=== PATIENT | female | born 1955 | race African-American/Black ===

== ENCOUNTER 2017-04-19 12:31 | Emergency (ER) | payer OTHER ==
[~2017-04-19] VITALS: Ht 154.9 cm; Wt 73.0 kg
--- NOTE | 2017-04-19 12:36 | Emergency Room Report ---
History of Present Illness General Chief Complaint: Chest Pain Source: Patient Present Illness HPI 62-year-old female brought in by EMS with chest pain States chest pain is substernal, radiates to left arm Pain is sharp in quality, 7/10 Associated with "tingling" Started at 5 AM been intermittent for 7 and half hours She went to work Called EMS because his symptoms continued, was given aspirin and nitroglycerin spray with minimal improvement Patient endorses recent cough but denies fever or chills or other URI symptoms history of high blood pressure but denies other medical problems Denies smoking, drinking or drug use Allergies: Coded Allergies: OXYCODONE (Verified Allergy, Unknown, 04/19/17) Patient History Past Medical History: HTN Past Surgical History: none Pertinent Family History: none Social History: Denies: smoking, alcohol use, drug use Now: No Immunizations: UTD Reviewed Nursing Documentation: PMH: Agreed, PSxH: Agreed Review of Systems All Other Systems: negative except mentioned in HPI Physical Exam Sp02 EP Interpretation: reviewed, normal General Appearance: normal inspection, well appearing, no apparent distress, alert, GCS 15, non-toxic Head: normocephalic, atraumatic Eyes: bilateral eye PERRL, bilateral eye EOMI ENT: normal ENT inspection, hearing grossly normal, normal voice Neck: normal inspection, full range of motion, supple, no bony tend Respiratory: normal inspection, lungs clear, normal breath sounds, no respiratory distress, no retraction, no wheezing, other - Chest pain illicits significant ttp, chest symmetrical Cardiovascular #1: regular rate, rhythm, no edema Gastrointestinal: normal inspection, normal bowel sounds, non tender, soft, no guarding, no hernia Genitourinary: no CVA tenderness Musculoskeletal: normal inspection, back normal, normal range of motion, Donald' s Sign negative Neurologic: normal inspection, alert, oriented x3, responsive, resolute professional III-XII nml as tested, speech normal Psychiatric: normal inspection, judgement/insight normal, mood/affect normal Skin: normal inspection, normal color, no rash Medical Decision Making Diagnostic Impression: Primary Impression: Chest pain Qualified Codes: R07.9 - Chest pain, unspecified Additional Impressions: Iron deficiency anemia Qualified Codes: D50.9 - Iron deficiency anemia, unspecified Musculoskeletal arm pain Qualified Codes: M79.602 - Pain in left arm Musculoskeletal back pain ER Course 62-year-old female with history of high blood pressure with chest pain for 7 hours Vital signs stable, afebrile ECG does not show ischemia Pain very reproducible on palpation Unlikely ACS or PE or dissection given intermittent symptoms, intermittent improvement of symptoms, duration of symptoms, well appearance, vital signs normal, and normal ECG. Troponin also unremarkable Chest x-ray negative for pneumonia, ptx Symptoms improved with IV Toradol Labs significant for hemoglobin of 8 In discussion with patient she does endorse known iron deficiency anemia, however questionable compliance with iron States chest pain and left arm pain improved after IV Toradol, now feeling pain on left shoulder Also reproducible to palpation Likely musculoskeletal Patient requesting note for days off from work gave copies of lab workup, advise PMD followup for iron studies Patient states she will go tomorrow ER course: Patient has remained stable during ED stay. Patient is to be discharged to home. Patient is instructed to follow up with their primary care doctor within 5 days. Strict return precautions discussed with patient such as fever, chills, worsening/severe pain, nausea, vomiting, which may indicate severe illness. Patient verbalizes understanding and agrees with plan. Please note that this Emergency Department Report was dictated using [employer] guard technology software, occasionally this can lead to erroneous entry secondary to interpretation by the dictation equipment EKG Diagnostic Results Rate: normal Rhythm: NSR ST Segments: no acute changes ASA given to the pt in ED: No Rhythm Strip Diag. Results EP Interpretation: yes Rate: 72 Rhythm: NSR, no PVC's, no ectopy Chest X-Ray Diagnostic Results Chest X-Ray Diagnostic Results : Chest X-Ray Ordered: Yes Indication: Chest Pain EP Interpretation: Yes Interpretation: no consolidation, no effusion, no pneumothorax, no acute cardiopulmonary disease Impression: No acute disease Electronically Signed by: Dr Franca Early MD Status: improved Disposition: HOME, SELF-CARE FRANCA EARLY M.D. Apr 19, 2017 12:36
[2017-04-19] MEDS ORDERED: ESTRACE1 MG ORAL (12:44)
[2017-04-19] MEDS ORDERED: VITAMIN D400 INTLU ORAL (12:44)
[2017-04-19] MEDS ORDERED: ALLOPURINOL300 M1 ORAL (12:44)
[2017-04-19] MEDS ORDERED: LISINOPRIL-HCT1 EACH ORAL (12:44)
[2017-04-19 12:45] VITALS: BP 174/93
[2017-04-19] MEDS ORDERED: Ketorolac 30mg Inj IV ONE (12:45)
[2017-04-19 12:57] LABS: MEAN CORPUSCULAR HGB CONC 28.6 G/DL (32.0-36.0); MEAN CORPUSCULAR VOLUME 66 FL (80-99); MEAN PLATELET VOLUME 5.2 FL (6.5-10.1); RED BLOOD COUNT 4.47 M/UL (4.20-5.40); RED CELL DISTRIBUTION WIDTH 20.2 % (11.6-14.8); WHITE BLOOD COUNT 5.8 K/UL (4.8-10.8)
[2017-04-19 12:58] VITALS: BP 160/90
[2017-04-19 13:13] LABS: ANION GAP 9 mmol/L (5-15); CALCIUM 8.7 MG/DL (8.5-10.1); CARBON DIOXIDE 26 MMOL/L (21-32); CHLORIDE 102 MMOL/L (98-107); CREATININE 0.5 MG/DL (0.55-1.30); GLOMERULAR FILTRATION RATE > 60 mL/min (>60); POTASSIUM 4.8 MMOL/L (3.5-5.1); SODIUM 137 MMOL/L (136-145)
[2017-04-19 13:25] LABS: EOSINOPHILS % (MANUAL) 1 % (0-3); LYMPHOCYTES % (MANUAL) 8 % (20-45); NEUTROPHILS % (MANUAL) 81 % (45-75); TOTAL CELLS COUNTED 100
[2017-04-19 13:27] LABS: ALANINE AMINOTRANSFERASE 16 U/L (12-78); ALBUMIN/GLOBULIN RATIO 0.9 (1.0-2.7); ANISOCYTOSIS 3+; ASPARTATE AMINO TRANSFERASE 42 U/L (15-37); BAND NEUTROPHILS % (MANUAL) 0 % (0-8); BASOPHILS % (MANUAL) 0 % (0-2); CKMB < 0.5 NG/ML (0.0-3.6); HYPOCHROMASIA 2+; MICROCYTES 3+; PLATELET ESTIMATE ADEQUATE; PLATELET MORPHOLOGY NORMAL; TOTAL PROTEIN 7.6 G/DL (6.4-8.2)
[2017-04-19 13:28] LABS: POIKILOCYTOSIS 1+; POLYCHROMASIA 1+
[2017-04-19 13:31] LABS: PLATELET COUNT 256 K/UL (150-450)
[2017-04-19 13:40] VITALS: BP 155/89
--- NOTE | 2017-04-19 14:19 | Diagnostic Imaging Report ---
Indication: Chest pain Technique: One view of the chest Comparison: none Findings: Lungs and pleural spaces are clear. Heart size is normal. Surgical clips are seen in the left axilla Impression: No acute process
== END 2017-04-19 13:40 | disposition home or self-care (01) ==
LOC: EDBD 12:31 → EMR 12:54
DX: R07.9 Chest pain, unspecified (principal); D50.9 Iron deficiency anemia, unspecified; M79.602 Pain in left arm; M54.9 Dorsalgia, unspecified; I10 Essential (primary) hypertension; Z88.6 Allergy status to analgesic agent
CPT/HCPCS: 36415; 71010; 80053; 80307; 82550; 82553; 83880; 84484; 85007; 85025; 93005; 96374; 99284; J1885